=== PATIENT | female | born 1970 | race Caucasian/White ===

== ENCOUNTER 2019-12-23 13:11 | Outpatient (RCR) | payer BC, SELFPAY ==
--- NOTE | 2019-12-23 15:12 | PTOPEVAL ---
PHYSICAL THERAPY EVALUATION AND PLAN OF CARE 12-23-2019 The PT evaluation was completed for the diagnosis of B LE lymphedema. Her plan of treatment is 2-3 x/week for 5 weeks. Thank you for referring Radha Schneider to [facility]. Please review, sign, date and return this plan of care SANTA. I agree with and certify that the following plan of care is medically necessary. Referring Physician Date Attending Provider: Andrew Childers MD *PT Outpatient Evaluation Start: 12/23/19 13:35 Document 12/23/19 13:30 RADHA (Rec: 12/23/19 15:09 RADHA [id number]) Outpatient Past Medical History Past Medical History Source of Past Medical History Patient Neurological History Hx Neurological Disorders No Significant History Cardiovascular History Hx Hypercholesterolemia Yes: meds Respiratory History Hx Respiratory Disorders No Significant History Gastrointestinal History Hx Gastric Bypass Surgery Yes: gastric sleeve 2014; Genitourinary History Hx Other Genitourinary Disorders Yes: overactive bladder- meds Musculoskeletal History Hx Arthritis Yes: R knee pain- plan for TKR but await decr edema Hx Joint Replacement Yes: L THR, L TKR, R THR; Hx Other Musculoskeletal Disorders Yes: tendon L foot surgery Endocrine History Hx Endocrine Disorders No Significant History HEENT History Hx HEENT Disorders No Significant History Reproductive History Hx Hysterectomy Yes Evaluation Information Problem Diagnosis B LE lymphedema Onset 2016 Prior Level of Function Activity Level (Last 3 Months) 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, 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 Activity of Daily Living Ability Independent Indoor/Home Mobility Independent Community Mobility Independent Stairs Ability Independent Functional Cognition (Planning, Shopping Independent , Taking Medications) Cooking Yes Cleaning Yes Laundry Yes Shopping Yes Driving Yes Comments Additional Prior Level of Function basement laundry- stairs Comments increase pain and throb in legs, can do Pain Assessment Timing of Pain Assessment Timing of Pain Assessment Assessment Pain Scale Pain Scale Used Numeric (1 - 10) Self Report Pain Assessment Bilateral Leg(s) Reported Pain Level 5 Radicular Pain Location L leg worse 5/10 at least pain rating Pain Frequency Chronic Other Pain Description heavy, throbbing; L worse than R leg pain; cramps foot to calf Lowest Pain Intensity
--- NOTE | 2020-01-18 15:25 | PCPTNOTE ---
talked with pt on phone, she stated her insurance will not cover treatment or garments. She is calling to check and verify insurance coverage for her lymphedema treatment. She will call back and let us know if treatment is approved;
--- NOTE | 2020-02-22 13:52 | PCPTNOTE ---
PHYSICAL THERAPY DISCHARGE 02-22-2020 Attending Provider: Andrew Childers MD Patient:Radha Schneider Date of :1970 Mrs. Schneider has not returned for any further treatments since the initial evaluation on 12/23/2019, therefore she will be discharged at this time. The goals were not addressed Thank you for referring Brianne to [facility]. Please review, sign, date and return this discharge summary SANTA. I have been updated about the patient's current status and I agree with discharge from the above service at this time. Referring Physician Date
== END 2020-02-24 08:38 | disposition home or self-care (01) ==
LOC: ANHPT 13:11
PROVIDERS: PCP Family Medicine; Visit Provider Family Medicine
DX: I89.0 Lymphedema, not elsewhere classified (principal)
CPT/HCPCS: 97162

== ENCOUNTER 2022-09-13 14:05 | Outpatient (CLI) | payer OTHER, SELFPAY ==
--- NOTE | ~2022-09-13 | XR_ITS ---
Right foot Technique: AP, oblique, and lateral views were obtained. Clinical History: Pain Findings: No acute fracture or dislocation is seen. Osseous alignment is anatomic. Joint spaces are p reserved without erosive or degenerative change. Soft tissues are unremarkable. Impression: Unremarkable right foot radiographs. Reviewed, dictated and finalized at [facility]. 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
--- NOTE | ~2022-09-13 | XR_ITS ---
Right ankle Technique: AP, oblique, and lateral views were obtained. Clinical History: Pain Findings: No acute fracture or dislocation is seen. Osseous alignment is anatomic. Ankle mortise and other visualized joint spaces are preserved. Subcutaneous soft tissue edema present. Impression: No fracture or dislocation. Reviewed, dictated and finalized at [facility]. 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
== END 2022-09-13 14:06 ==
LOC: MICIMG 14:07
PROVIDERS: PCP Family Medicine; Visit Provider Family Medicine
DX: M79.671 Pain in right foot (principal); M25.571 Pain in right ankle and joints of right foot
CPT/HCPCS: 73610; 73630

== ENCOUNTER 2022-10-29 13:57 | Outpatient (CLI) | payer OTHER, SELFPAY ==
--- NOTE | ~2022-10-29 | XR_ITS ---
XR knee RT 3V DATE: 10/29/2022 14:20 INDICATION: Medial right knee pain. Chronic lymphedema. TECHNIQUE: Lane and standing AP and lateral views COMPARISON: None FINDINGS: Diffuse osteopenia. There is severe tricompartment osteoarthritis with severe joint space narrowing and very prominent sp urring at the patellofemoral joint, very prominent periarticular spurring at the lateral compartment and moderately severe loss of medial compartment joint space. No fracture or dislocation or joint effusion is evident. No periosteal reaction or bone destruction. No radiopaque intra-articular loose body or chondrocalcinosis. IMPRESSION: Severe tricompartment osteoarthritis Osteopenia Reviewed, dictated and finalized at location L. TENDER FOURDRINIER
== END 2022-10-29 13:58 ==
PROVIDERS: PCP Family Medicine; Visit Provider Family Medicine
DX: M17.11 Unilateral primary osteoarthritis, right knee (principal); M85.861 Other specified disorders of bone density and structure, right lower leg
CPT/HCPCS: 73562

== ENCOUNTER 2025-06-28 13:25 | Outpatient (CLI) | payer OTHER, SELFPAY ==
--- NOTE | ~2025-06-28 | MM_ITS ---
EXAMINATION: screening [facility] BI w iker INDICATION: Asymptomatic, referred for screening mammogram COMPARISON: None available TECHNIQUE: Digital Breast Tomosynthesis CC, MLO views of Both breasts were obtained with computer-aided detection to assist in interpretation of the study. FINDINGS: The breasts are almost entirely fatty. There is a focal asymmetry in the inferior medial, anterior third left. In addition, there is an asymmetry seen on the MLO view in the superior left breast subareolar location. Elsewhere, there are no mammographic features of malignancy. IMPRESSION: 1. Left breast asymmetries. 2. No evidence of malignancy in the Right breast. RECOMMENDATION: Left breast Diagnostic mammogram with true lateral, appropriate spot compression views and an ultrasound if needed. BI-RADS Category 0: Incomplete: Needs additional imaging evaluation. Reviewed, dictated and finalized at location B. 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 Left breast asymmetries. 2. No evidence of malignancy in the Right breast. RECOMMENDATION: Left breast Diagnostic mammogram with true lateral, appropriate spot compressio n views and an ultrasound if needed. BI-RADS Category 0: Incomplete: Needs additional imaging evaluation.
== END 2025-06-28 13:26 | disposition home or self-care (01) ==
LOC: MICIMG 13:26
PROVIDERS: PCP Family Medicine; Visit Provider Family Medicine
DX: Z12.31 Encounter for screening mammogram for malignant neoplasm of breast (principal); R92.8 Other abnormal and inconclusive findings on diagnostic imaging of breast
CPT/HCPCS: 77063; 77067